=== PATIENT | female | born 1965 | race Caucasian/White ===

== ENCOUNTER → 2018-04-19 | Outpatient (CLI) | payer BC ==
--- NOTE | 2018-04-19 15:02 | US ---
EXAMINATION TYPE: US kidneys/renal and bladder DATE OF EXAM: 04/19/2018 COMPARISON: NONE CLINICAL HISTORY: 53-year-old female N20.0 Calculus of kidney. Hematuria. TECHNIQUE: Multiple sonographic images of the kidneys and bladder are obtained. FINDINGS: EXAM MEASUREMENTS: Right Kidney: 11.1 x 4.5 x 5.1 cm Left Kidney: 12.2 x 5.5 x 5.9 cm Post Void Residual Volume: 18.6 mL Right Kidney: small amount of fluid in renal pelvis even post void. Left Kidney: large stone with shadowing and twinkle artifact lower pole measures 1.2 x 1.4 cm Bladder: wnl Bilateral Jets seen: Yes Normal Post Void Residual: yes IMPRESSION: 1. Mild right-sided pelvicaliectasis. As the right ureteral jet is visualized, correlate for the poss ibility of a recently passed stone. Short interval follow-up can reassess. 2. Suggestion of a large 1.4 cm nonobstructive left lower pole renal calculus. 3. Post void bladder volume is nearly 20 mL which is increased but still within acceptable limits.
== END | disposition home or self-care (01) ==
LOC: RADUSWWP 10:38
PROVIDERS: ATTEND Family Medicine
DX: N28.89 Other specified disorders of kidney and ureter (principal)
CPT/HCPCS: 76770

== ENCOUNTER → 2018-05-03 | Outpatient (CLI) | payer BC ==
--- NOTE | 2018-05-03 10:45 | XR ---
EXAMINATION TYPE: XR KUB DATE OF EXAM: 05/03/2018 10:05 AM CLINICAL HISTORY: Left-sided calculus. TECHNIQUE: Two supine KUB images of the abdomen are obtained. COMPARISON: None. FINDINGS: There is elongated 19 mm calculus left kidney mid pole level L2 level. Left pelvic phlebol iths are seen. Overall nonobstructive bowel gas pattern is present. Cholecystectomy clips are noted. Visualized osse ous structures are intact. IMPRESSION: Dominant 19 mm calculus left kidney centrally mid pole level.
== END ==
LOC: RADXRMAIN 09:46
PROVIDERS: ATTEND Urology
DX: N20.0 Calculus of kidney (principal)
CPT/HCPCS: 74018

== ENCOUNTER → 2018-10-19 | Outpatient (CLI) | payer BC ==
--- NOTE | 2018-10-21 08:37 | MM ---
Reason for exam: screening (asymptomatic). Last mammogram was performed 15 years and 5 months ago. History: Patient is postmenopausal. Took hormonal contraceptives for 5 years. Physical Findings: A clinical breast exam by your physician is recommended on an annual basis and results should be correlated with mammographic findings. MG Screening Mammo w CAD Bilateral CC and MLO view(s) were taken. Prior study comparison: May 16, 2003, bilateral screening mammogram. There are scattered fibroglandular densities. There is no discrete abnormality. No significant changes when compared with prior studies. ASSESSMENT: Negative, BI-RAD 1 RECOMMENDATION: Routine screening mammogram of both breasts in 1 year.
== END | disposition home or self-care (01) ==
LOC: RADMAMWWP 13:49
PROVIDERS: ATTEND Family Medicine
DX: Z12.31 Encounter for screening mammogram for malignant neoplasm of breast (principal)
CPT/HCPCS: 77067

== ENCOUNTER → 2019-03-07 | Outpatient (CLI) | payer BC ==
--- NOTE | 2019-03-07 11:38 | XR ---
EXAMINATION TYPE: XR abdomen 1V DATE OF EXAM: 03/07/2019 9:14 AM CLINICAL HISTORY: Left-sided renal calculus. TECHNIQUE: Single supine KUB image of the abdomen is obtained. COMPARISON: 05/03/2018r. FINDINGS: There is redemonstration of a left renal calculus probably measuring 1.5 cm and previously measuring 1.9 cm on the exam of 05/03/2018. Differences in size is likely related to differences in obl iquity. Similar position. No additional suspicious calculi in the abdomen or pelvis. Unchanged phlebo liths. Cholecystectomy clips. Moderate degree colonic fecal stasis with no dilated large or small bow el. Lung bases are well aerated. IMPRESSION: 1. Left-sided nephrolithiasis appears similar in position to the prior to 419. No new suspicious calc jayme. 2. Moderate degree colonic fecal stasis.
== END | disposition home or self-care (01) ==
LOC: RADXRMAIN 08:56
PROVIDERS: ATTEND Urology
DX: N20.0 Calculus of kidney (principal); K59.8 Other specified functional intestinal disorders
CPT/HCPCS: 74018

== ENCOUNTER → 2020-03-06 | Outpatient (CLI) | payer BC ==
--- NOTE | 2020-03-07 10:23 | MM ---
Reason for exam: screening (asymptomatic). Last mammogram was performed 1 year and 5 months ago. History: Patient is postmenopausal and had first child at age 33. Took hormonal contraceptives for 5 years. Physical Findings: A clinical breast exam by your physician is recommended on an annual basis and results should be correlated with mammographic findings. MG Screening Mammo w CAD Bilateral CC and MLO view(s) were taken. Prior study comparison: October 19, 2018, bilateral MG screening mammo w CAD. May 16, 2003, bilateral screening mammogram. There are scattered fibroglandular densities. No significant changes when compared with prior studies. ASSESSMENT: Benign, BI-RAD 2 RECOMMENDATION: Routine screening mammogram of both breasts in 1 year.
== END | disposition home or self-care (01) ==
LOC: RADMAMWWP 08:32
PROVIDERS: ATTEND Family Medicine
DX: Z12.31 Encounter for screening mammogram for malignant neoplasm of breast (principal)
CPT/HCPCS: 77067

== ENCOUNTER → 2022-07-25 | Outpatient (CLI) | payer BC ==
--- NOTE | 2022-07-28 08:57 | MM ---
Reason for Exam: Screening (asymptomatic). Last mammogram was performed 2 year(s) and 4 month(s) ago. Patient History: Menarche at age 13. First Full-Term at age 33. Late child-bearing (after 30). Postmenopausal. Patient used Hormonal Contraceptives for 5 years. Risk Values: Jaqueline 5 year model risk: 1.7%. NCI Lifetime model risk: 9.4%. Prior Study Comparison: 05/16/2003 Bilateral Screening Mammogram, [facility]. 10/19/2018 Bilateral Screening Mammogram, [facility]. 03/06/2020 Bilateral Screening Mammogram, [facility]. Tissue Density: The breast tissue is heterogeneously dense. This may lower the sensitivity of mammography. Findings: Analyzed By CAD. There is no suspicious group of microcalcifications or new suspicious mass in either breast. Benign calcifications within the right breast. Overall Assessment: Benign, BI-RAD 2 Management: Screening Mammogram of both breasts in 1 year. A clinical breast exam by your physician is recommended on an annual basis and results should be correlated with mammographic findings. Electronically signed and approved by: Eliezer Lizarraga D.O.
== END | disposition home or self-care (01) ==
LOC: RADMAMWWP 11:50
PROVIDERS: ATTEND Family Medicine
DX: Z12.31 Encounter for screening mammogram for malignant neoplasm of breast (principal); Z78.0 Asymptomatic menopausal state
CPT/HCPCS: 77067

== ENCOUNTER → 2023-08-05 | Outpatient (CLI) | payer BC ==
--- NOTE | 2023-08-06 19:04 | MM ---
Reason for Exam: Screening (asymptomatic). Last mammogram was performed 1 year(s) and 1 month(s) ago. Patient History: Menarche at age 13. First Full-Term at age 33. Late child-bearing (after 30). Postmenopausal. Patient used Hormonal Contraceptives for 5 years. Risk Values: Jaqueline 5 year model risk: 1.8%. NCI Lifetime model risk: 9.1%. Prior Study Comparison: 10/19/2018 Bilateral Screening Mammogram, [facility]. 03/06/2020 Bilateral Screening Mammogram, [facility]. 07/25/2022 Bilateral MG screening mammo w CAD, [facility]. Tissue Density: There are scattered areas of fibroglandular density. Findings: Analyzed By CAD. There is no suspicious group of microcalcifications or new suspicious mass in either breast. Overall Assessment: Negative, BI-RAD 1 Management: Screening Mammogram of both breasts in 1 year. . Patient should continue monthly self-breast exams. A clinical breast exam by your physician is recommended on an annual basis. This exam should not preclude additional follow-up of suspicious palpable abnormalities. Note on Jaqueline scores and lifetime risk: 1. A Jaqueline score greater than 3% is considered moderate risk. If this is the case, consider specialist referral to assess eligibility for a risk reducing agent. 2. If overall lifetime risk for the development of breast cancer is 20% or higher, the patient may qualify for future screening with alternating mammogram and breast MRI. Electronically signed and approved by: Shae De La Garza M.D. Radiologist
== END | disposition home or self-care (01) ==
LOC: RADMAMWWP 08:13
PROVIDERS: ATTEND Family Medicine
DX: Z12.31 Encounter for screening mammogram for malignant neoplasm of breast (principal); Z78.0 Asymptomatic menopausal state
CPT/HCPCS: 77067

== ENCOUNTER → 2024-09-21 | Outpatient (CLI) | payer BC ==
--- NOTE | 2024-09-21 18:17 | US ---
EXAMINATION TYPE: US thyroid st tissue head/neck DATE OF EXAM: 09/21/2024 COMPARISON: NONE CLINICAL INDICATION: Female, 59 years old with history of R59.0 LOCALIZED ENLARGED LYMPH NODES; pt is feeling lump behind ear, parotid gland TECHNIQUE: Bilat parotid glad/ neck scanned, AOC FINDINGS: Hypoechoic area seen within Lt parotid gland posterior to ear: 1.8x1.9x1.3cm. Consider lymph node. CT can be performed if additional workup would be of use. IMPRESSION: 1. Enlarged abnormal appearing lymph node within the left parotid gland. [facility], , 09/21/2024 6:14 PM
== END | disposition home or self-care (01) ==
LOC: RADUSWWP 15:36
PROVIDERS: ATTEND Family Medicine
DX: R59.0 Localized enlarged lymph nodes (principal)
CPT/HCPCS: 76536

== ENCOUNTER → 2024-10-18 | Outpatient (CLI) | payer BC ==
--- NOTE | 2024-10-18 14:56 | CT ---
EXAMINATION TYPE: CT facial bones w con CT DLP: 674 mGycm, Automated exposure control for dose reduction was used. DATE OF EXAM: 10/18/2024 2:42 PM COMPARISON: Ultrasound 09/21/2024. 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 No pain., pain TECHNIQUE: Multiple enhanced axial CT images were obtained of the facial bones soft tissue and bone w indows administration of 100 mL of Isovue-300 intravenously. Coronal, axial and sagittal reformatted images were also provided in soft tissue and bone windows and submitted for interpretation. FINDINGS: Dental amalgam creates streak artifact which limits evaluation. There is no evidence of fracture, subluxation, dislocation, or significant soft tissue swelling. The orbital contents are unremarkable. The temporal-mandibular joints appear symmetric. The visualized po rtion of the paranasal sinuses appear clear. Mild nasal septal deviation to the left with spurring. T he visualized portions of the brain are unremarkable. The visualized vasculature appears patent. Feta l origin of the left TRIBAL DELEGATE. No pathologically enlarged lymph nodes greater than 1 cm short axis identified. Homogeneously enhanci ng 5 x 4 x 7 mm nodule within the superficial aspect of the left parotid gland near the palpable konrad er (series 3, image 67). IMPRESSION: Subcentimeter superficial left parotid gland enhancing lesion. This is nonspecific with a variety of etiologies including pleomorphic adenoma versus Warthin's tumor versus other. Recommend tissue sampli ng for definitive diagnosis. [facility], , 10/18/2024 2:54 PM
== END | disposition home or self-care (01) ==
LOC: RADCTMAIN 14:13
PROVIDERS: ATTEND Nurse Practitioner Adult Health
DX: K11.8 Other diseases of salivary glands (principal)
CPT/HCPCS: 70487; Q9967